=== PATIENT | female | born 1970 | race Caucasian/White ===

== ENCOUNTER 2020-01-12 12:46 | Emergency (ER) | payer MEDICAID ==
[~2020-01-12] VITALS: Ht 167.6 cm; Wt 90.0 kg
[2020-01-12 12:47] VITALS: BP 130/91
[2020-01-12] MEDS ORDERED: AMOX-117 PO (13:06)
[2020-01-12] MEDS ORDERED: TETanus/Pertussis (Acell)/Diphther VAC/PF (Tdap-Adult) 0.5ml syringe IMVAC ONE (13:10)
== END 2020-01-12 13:21 | disposition home or self-care (01) ==
LOC: ER 12:46
DX: S51.812A Laceration without foreign body of left forearm, initial encounter (principal); S61.031A Puncture wound without foreign body of right thumb without damage to nail, initial encounter; W55.01XA Bitten by cat, initial encounter; Y93.89 Activity, other specified; Y92.89 Other specified places as the place of occurrence of the external cause; Y99.9 Unspecified external cause status
CPT/HCPCS: 90471; 90715; 99283

== ENCOUNTER 2024-10-17 17:21 | Emergency (ER) | payer MEDICAID ==
[~2024-10-17] VITALS: Ht 165.1 cm; Wt 87.8 kg
[2024-10-17] MEDS: ziprasidone IM 20mg inj **IM only IM ONE (18:42)
[2024-10-17 19:06] LABS: BASOPHILS # (AUTO) 0.1 X10'3 (0-0.2); BASOPHILS % (AUTO) 0.7 % (0-1); EOSINOPHILS # (AUTO) 0.1 X10'3 (0-0.9); EOSINOPHILS % (AUTO) 1.3 % (0-6); HEMATOCRIT 42.6 % (35.0-45.0); HEMOGLOBIN 14.3 g/dl (12.0-16.0); LYMPHOCYTES # (AUTO) 2.5 X10'3 (1.1-4.8); MEAN CORPUSCULAR HEMOGLOBIN 29.3 PG (27.0-31.0); MEAN CORPUSCULAR HGB CONC 33.6 g/dL (33.0-36.5); MEAN CORPUSCULAR VOLUME 87.3 FL (78-98); MEAN PLATELET VOLUME 6.7 FL (7.4-10.4); MONOCYTES # (AUTO) 0.8 X10'3 (0-0.9); NEUTROPHILS # (AUTO) 6.2 X10'3 (1.8-7.7); PLATELET COUNT 302 X10'3 (140-440); RED BLOOD COUNT 4.88 X10'6 (4.20-5.60); RED CELL DISTRIBUTION WIDTH 13.3 % (11.5-14.5); WHITE BLOOD COUNT 9.7 X10'3 (4.5-11.0)
[2024-10-17 19:32] LABS: ALBUMIN 4.1 G/DL (3.4-5.0); ANION GAP 6 (8-16); BLOOD UREA NITROGEN 16 MG/DL (7-18); BUN/CREATININE RATIO 17.8 (10.0-20.0); CALCIUM 10.2 MG/DL (8.5-10.1); CHLORIDE 106 MMOL/L (99-107); GLUCOSE 99 MG/DL (70-104); POTASSIUM 3.5 MMOL/L (3.5-5.1); SODIUM 140 MMOL/L (135-145); THYROID STIMULATING HORMONE 1.27 ulU/ml (0.34-4.50); TOTAL CARBON DIOXIDE 28.5 MMOL/L (24-32); eCRCL 64 ML/MIN; eGFR 65 ML/MIN
[2024-10-17] MEDS: LORazepam 2 mg/ml vial IM ONE (19:33)
[2024-10-17] MEDS: diphenhydrAMINE 50 mg/ml inj IM ONE (19:33)
[2024-10-17] MEDS: haloperidol lactate 5mg/ml inj IM ONE (19:34)
[2024-10-17 19:54] LABS: ETHANOL < 10 MG/DL (<10)
[2024-10-17] MEDS ORDERED: HALO5TAB PO (20:35)
[2024-10-17] MEDS ORDERED: ARIP2TAB37 PO (20:35)
[2024-10-17] MEDS ORDERED: LURA40TA2 PO (20:35)
[2024-10-17] MEDS ORDERED: BENZ0.5T3 PO (20:35)
[2024-10-17] MEDS ORDERED: FLUO40CA PO (20:35)
[2024-10-17] MEDS ORDERED: haloperidol 5mg tablet PO PRN (20:55)
[2024-10-17] MEDS ORDERED: benztropine 1mg tablet PO PRN (20:55)
[2024-10-18 05:55] VITALS: BP 134/84; PULSE 78; RESP 16; TEMP 98.1; O2SAT 96
[2024-10-18] MEDS: lurasidone 20mg tablet PO SCH (09:07)
[2024-10-18] MEDS: aripiprazole 2MG tablet PO SCH (09:07)
[2024-10-18] MEDS: FLUoxetine 20mg capsule PO SCH (09:07)
[2024-10-18 10:35] LABS: BILIRUBIN,URINE NEGATIVE (Neg); CLARITY,URINE CLEAR (Clear); COLOR,URINE YELLOW (Yellow); GLUCOSE, URINE NEGATIVE (Neg); KETONES,URINE NEGATIVE (Neg); LEUKOCYTE ESTERASE ,URINE NEGATIVE (Neg); NITRITES, URINE NEGATIVE (Neg); OCCULT BLOOD,URINE NEGATIVE (Neg); PH,URINE 5.5 (4.8-8.0); PROTEIN,URINE NEGATIVE (Neg); UROBILINOGEN,URINE 0.2 E.U/dL (0.2-1.0)
[2024-10-18 10:36] LABS: UA COLLECTION TYPE VOIDED
[2024-10-18 10:47] LABS: URINE AMPHETAMINE SCREEN POSITIVE (Neg); URINE BARBITUATE SCREEN NEGATIVE (Neg); URINE BENZODIAZEPINES SCREEN NEGATIVE (Neg); URINE CANNABINOID SCREEN NEGATIVE (Neg); URINE COCAINE SCREEN NEGATIVE (Neg); URINE METHADONE SCREEN NEGATIVE (Neg); URINE OPIATE SCREEN NEGATIVE (Neg); URINE PHENCYCLIDINE SCREEN NEGATIVE (Neg)
== END 2024-10-18 13:10 | disposition home or self-care (01) ==
LOC: ER 17:22
DX: F43.20 Adjustment disorder, unspecified (principal); R44.0 Auditory hallucinations; F41.9 Anxiety disorder, unspecified; F99 Mental disorder, not otherwise specified; Z98.890 Other specified postprocedural states; Z20.822 Contact with and (suspected) exposure to COVID-19
CPT/HCPCS: 36415; 80048; 80305; 80320; 81003; 84443; 85025; 87811; 96372; 99284; J1200; J1630; J2060; J3486